=== PATIENT | female | born 1995 | race African-American/Black ===

== ENCOUNTER 2020-12-25 10:23 | Outpatient (REF) | payer OTHER, SELFPAY | END 2020-12-25 10:24 | disposition home or self-care (01) | LOC: HO.LAB 10:23 | PROVIDERS: Visit Provider Internal Medicine | DX: Z20.822 Contact with and (suspected) exposure to COVID-19 (principal) | CPT/HCPCS: 36415; C9803; U0003; U0005 ==

== ENCOUNTER 2020-12-29 13:44 | Outpatient (REF) | payer OTHER, SELFPAY | END 2020-12-29 13:45 | disposition home or self-care (01) | LOC: HO.LAB 13:44 | PROVIDERS: Visit Provider Internal Medicine | DX: Z20.822 Contact with and (suspected) exposure to COVID-19 (principal) | CPT/HCPCS: 36415; C9803; U0003; U0005 ==

== ENCOUNTER 2021-03-09 20:04 | Emergency (ER) | payer OTHER, SELFPAY ==
--- NOTE | ~2021-03-09 | US_ITS ---
EXAMINATION: ULTRASOUND OB PELVIC AND TRANSVAGINAL CLINICAL INFORMATION: Vaginal bleeding COMPARISON: None TECHNIQUE: Sonographic evaluation of the pelvis was performed transabdominally and transvaginally. FINDINGS: The uterus measures 9.1 cm in length and 5.3 x 6.9 cm in AP and transverse dimensions. There is an intrauterine gestational sac with mean sac diameter of 0.5 cm, corresponding to gestational age of 5 weeks 0 days (estimated date of delivery 11/10/2021. There is a questionable yolk sac. No pole is seen at this time. Within the uterus near the gestational sac there is a focal anechoic region measuring up to 0.3 cm in diameter which could represent a small perigestational hemorrhage. The right ovary measures 4.5 x 1.9 x 2.2 cm and appears unremarkable. The left ovary measures 3.4 x 2.0 x 2.1 cm and also appears unremarkable. Trace free fluid is noted in the cul-de-sac. US/US OB pelvic and transvaginal IMPRESSION: 1. Intrauterine gestational sac with mean sac diameter corresponding to gestational age of 5 weeks 0 days (estimated date of delivery 11/10/2021). No pole is seen at this time, which may be due to the early phase of . Follow-up first trimester ultrasound is recommended to assess for development of a pole. 2. Focal anechoic region measuring 0.3 cm in diameter near the gestational sac could represent a small perigestational hemorrhage. Attention on follow-up is recommended. 3. Trace pelvic free fluid.
[2021-03-09 22:29] LABS: Basophils Percent Auto 0.2 % (0-2); Eosinophils Percent Auto 0.3 % (0-4); Glucose Urine UA NEG (NEG); Hematocrit 35.1 % (37-47); Hemoglobin 11.1 g/dl (12.0-16.0); Imm Gran Abs Auto 0.01 X10*3/uL (0.00-0.03); Imm Gran Pct Auto 0.2 % (0.0-0.4); Leukocyte Esterase Urine NEG (NEG); Lymphocytes Percent Auto 17.6 % (20-40); MANUAL DIFF FLAG NO; Mean Corpuscular HGB Conc 31.6 g/dl (31.0-35.0); Mean Corpuscular Hemoglobin 23.9 pg (27.0-33.0); Mean Corpuscular Volume 75.6 fL (80-98); Mean Platelet Volume 9.2 fL (9.4-12.3); Monocytes Absolute Auto 0.6 X10*3/uL (0.1-1.2); Monocytes Percent Auto 10.4 % (2-11); Neutrophils Absolute Auto 4.2 X10*3/uL (2.0-8.3); Neutrophils Percent Auto 71.3 % (45-73); Nitrite Urine NEG (NEG); Platelet Count 307 X10*3/uL (160-400); Red Blood Count 4.64 X10*6/uL (4.20-5.50); Red Cell Distribution Width 14.6 % (11.0-16.0); Specific Gravity - Urine >= 1.030 (1.005-1.025); Urine Blood NEG (NEG); Urine Ketones 5 MG/DL (NEG); Urine Protein NEG (NEG-TRACE); White Blood Count 5.9 X10*3/uL (4.8-10.8)
[2021-03-09 22:30] LABS: Appearance Urine CLEAR; Color Urine YELLOW
[2021-03-09 22:38] VITALS: BP 144/82; PULSE 89; RESP 14; TEMP 36.9; O2SAT 100; BMI 44.6
[2021-03-09 22:54] LABS: Alanine Aminotransferase 16 U/L (0-31); Albumin Level 3.8 g/dL (3.5-5.0); Alkaline Phosphatase 120 U/L (39-117); Anion Gap 11 (12-20); Aspartate Amino Transferase 17 U/L (5-31); Bilirubin Total 0.4 mg/dL (0.0-1.0); Blood Urea Nitrogen 11 mg/dL (9-16); Calcium 9.1 mg/dL (8.4-10.2); Carbon Dioxide 25 mmol/L (22-29); Chloride 107 mmol/L (96-108); Estimated Glomerular Filt Rate > 60; Glucose Random 85 mg/dL (60-115); Sodium 139 mmol/L (135-145); Total Protein 7.2 g/dL (6.5-8.0)
[2021-03-09 23:01] LABS: HCG Quantitative 2244 mIU/mL
[2021-03-10] VITALS: RESP 18
--- NOTE | 2021-03-10 00:14 | ED_ITS ---
HPI - General Chief complaint: Vaginal Bleeding Stated complaint: vaginal bleeding 7weeks Time Seen by Provider: 03/09/21 21:23 Source: patient and family (Mother) Mode of arrival: ambulatory History of Present Illness HPI Narrative: 25-year-old female, , LMP-4/19 with EGA: 7 weeks with onset of sharp pain on urination and noted blood on the tissue paper after urinating but denies any abdominal pelvic cramping. In addition, she denies any fever, chills, shortness of breath, nausea/vomiting, or diarrhea. Related Data Allergies Allergy/AdvReac Type Severity Reaction Status Date / Time latex Allergy Unknown Verified 03/09/21 22:42 nickel Allergy Unknown Verified 03/09/21 22:42 Review of Systems Review of Systems: Pertinent positives and negatives as stated in HPI 10 point review of systems is otherwise negative. [facility] Past Medical History Source: nursing notes reviewed Social History Social History Advance Directives: No Patient : Yes Physical Exam Vital Signs: Vital Signs: Last Vital Signs Temp 98.4 F 03/09/21 22:38 Pulse 89 03/09/21 22:38 Resp 18 03/10/21 00:00 BP 144/82 H 03/09/21 22:38 Pulse Ox 100 03/09/21 22:38 Body Mass Index 44.6 VITAL SIGNS: Reviewed. GENERAL: Well developed, well nourished, in no acute distress. HEAD: Normocephalic/atraumatic EYES: PERRLA, EOMI NOSE: Nares patent bilateral OROPHARYNX: no oral lesions noted, posterior pharynx clear NECK: Supple, no adenopathy LUNGS: Normal breath sounds. No adventitious sounds or accessory muscle use. SpO2<100> CARDIOVASCULAR: Regular rate and rhythm without noted murmurs ABDOMEN: Obese, Soft, non-tender, non-distended with bowel sounds. Course Course Course Narrative: 25-year-old female with history and clinical presentation suggestive of possible SAB or benign 1st trimester spotting. On review of all investigations there are no acute findings on comparison to baseline and on review ultrasound findings patient is dated to be 5 weeks, IUP. All results were discussed with her bedside, she was encouraged to follow-up with her information technology administrator, and to continue her vitamins. MDM - OB/Uterine Contractions Lab Data Result diagrams: 03/09/21 22:18 03/09/21 22:18 Labs: Lab Results 03/09/21 03/09/21 03/09/21 Range/Units 22:18 22:18 22:18 WBC 5.9 (4.8-10.8) X10*3/uL RBC 4.64 (4.20-5.50) X10*6/uL Hgb 11.1 L (12.0-16.0) g/dl Hct 35.1 L (37-47) % MCV 75.6 L (80-98) fL MCH 23.9 L (27.0-33.0) pg MCHC 31.6 (31.0-35.0) g/dl RDW 14.6 (11.0-16.0) % Plt Count 307 (160-400) X10*3/uL MPV 9.2 L (9.4-12.3) fL Immature Gran % (Auto) 0.2 (0.0-0.4) % Neut % (Auto) 71.3 (45-73) % Lymph % (Auto) 17.6 L (20-40) % Steele % (Auto) 10.4 (2-11) % Eos % (Auto) 0.3 (0-4) % Baso % (Auto) 0.2 (0-2) % Lymph # (Auto) 1.0 L (1.2-4.9) X10*3/uL Steele # (Auto) 0.6 (0.1-1.2) X10*3/uL Eos # (Auto) 0.0 (0.0-0.4) X10*3/uL Baso # (Auto) 0.0 (0.0-0.2) X10*3/uL Abs Immat Gran (auto) 0.01 (0.00-0.03) X10*3/uL Absolute Neuts (auto) 4.2 (2.0-8.3) X10*3/uL Absolute Nucleated RBC 0.000 (0.0-0.012) X10*3/uL Nucleated RBC % (auto) 0.0 (0.0-0.2) /100WBC Sodium 139 (135-145) mmol/L Potassium 4.0 (3.3-5.1) mmol/L Chloride 107 (96-108) mmol/L Carbon Dioxide 25 (22-29) mmol/L Anion Gap 11 L (12-20) BUN 11 (9-16) mg/dL Creatinine 0.70 (0.5-1.4) mg/dL Estim Creat Clear Calc 151.0 Estimated GFR > 60 Random Glucose 85 (60-115) mg/dL Calcium 9.1 (8.4-10.2) mg/dL Total Bilirubin 0.4 (0.0-1.0) mg/dL AST 17 (5-31) U/L ALT 16 (0-31) U/L Alkaline Phosphatase 120 H (39-117) U/L Total Protein 7.2 (6.5-8.0) g/dL Albumin 3.8 (3.5-5.0) g/dL Beta HCG, Quant 2244 mIU/mL Urine Color YELLOW Urine Appearance CLEAR Urine pH 6.0 (5.0-8.0) Ur Specific [place] >= 1.030 H (1.005-1.025) Urine Protein NEG (NEG-TRACE) MG/DL Urine Glucose (UA) NEG (NEG) MG/DL Urine Ketones 5 (NEG) MG/DL Urine Blood NEG (NEG) Urine Nitrite NEG (NEG) Ur Leukocyte Esterase NEG (NEG) Discharge Plan Discharge Clinical Impression: First trimester bleeding Patient Disposition: Home, Self-Care Additional Instructions: Continue with vitamins and iron as prescribed or recommended. Follow-up with your information technology administrator by calling the office in the morning for re- evaluation. Return to the ER for any acute worsening symptoms. Referrals: [facility] [Primary Care Provider] - 2 days
== END 2021-03-10 01:40 | disposition home or self-care (01) ==
PROVIDERS: Emergency Provider Student in an Organized Health Care Education/Training Program
DX: O20.9 Hemorrhage in early pregnancy, unspecified (principal); Z3A.01 Less than 8 weeks gestation of pregnancy
CPT/HCPCS: 36415; 76801; 76817; 80053; 81003; 84702; 85025; 99284

== ENCOUNTER 2021-03-14 19:10 | Emergency (ER) | payer OTHER, SELFPAY ==
[2021-03-14 19:31] VITALS: BP 128/82; PULSE 82; RESP 17; TEMP 37; O2SAT 99; BMI 44.6
[2021-03-14 20:00] VITALS: BP 118/61; PULSE 74; RESP 16; O2SAT 100
[2021-03-14 21:42] LABS: Basophils Percent Auto 0.2 % (0-2); Eosinophils Absolute Auto 0.1 X10*3/uL (0.0-0.4); Eosinophils Percent Auto 1.2 % (0-4); Hematocrit 36.3 % (37-47); Hemoglobin 11.5 g/dl (12.0-16.0); Imm Gran Abs Auto 0.02 X10*3/uL (0.00-0.03); Imm Gran Pct Auto 0.4 % (0.0-0.4); Lymphocytes Absolute Auto 1.9 X10*3/uL (1.2-4.9); Lymphocytes Percent Auto 38.5 % (20-40); MANUAL DIFF FLAG SCAN; Mean Corpuscular HGB Conc 31.7 g/dl (31.0-35.0); Mean Corpuscular Hemoglobin 23.7 pg (27.0-33.0); Mean Corpuscular Volume 74.8 fL (80-98); Mean Platelet Volume 8.8 fL (9.4-12.3); Monocytes Absolute Auto 0.5 X10*3/uL (0.1-1.2); Monocytes Percent Auto 9.1 % (2-11); Neutrophils Absolute Auto 2.5 X10*3/uL (2.0-8.3); Neutrophils Percent Auto 50.6 % (45-73); Platelet Count 270 X10*3/uL (160-400); Red Blood Count 4.85 X10*6/uL (4.20-5.50); Red Cell Distribution Width 14.2 % (11.0-16.0); SCAN SMEAR FLAG 1
--- NOTE | 2021-03-14 22:02 | ED_ITS ---
HPI - General Chief complaint: Vaginal Bleeding Stated complaint: PAINFUL URINATION BLEEDING Time Seen by Provider: 03/14/21 21:54 History of Present Illness HPI Narrative: Patient is a 25-year-old female presents today with having last menstrual period back on January 19. Patient was seen emergency department on Tuesday. Had an ultrasound that shows a 5 week gestation intrauterine sac. Patient complaining of increasing cramping to the abdomen today. Noticed some small amount of tissue. Notice bleeding. Patient is from home. Unsure about her blood type. No cough and a congestion or upper respiratory symptoms. No pain on urination. Patient from home. Related Data Allergies Allergy/AdvReac Type Severity Reaction Status Date / Time latex Allergy Unknown Verified 03/09/21 22:42 nickel Allergy Unknown Verified 03/09/21 22:42 Review of Systems Review of Systems: Constitutional: No Weight loss, No Fever, No Chills, No Night Sweats, No Fatigue, No Malaise ENT/Mouth: No Hearing loss, No Ear Pain, No Nasal Congestion, No Sinus Pain, No Hoarseness, No sore throat, No Rhinorrhea, No Swallowing Difficulty Eyes: No Eye Pain, No Swelling, No Redness, No Foreign Body, No Discharge, No Vision Changes Cardiovascular: No Chest Pain, No SOB, No Dyspnea on Exertion, No Orthopnea, No Edema, No Palpitations Respiratory: No Cough, No Sputum, No Wheezing, No Smoke Exposure, No Dyspnea Gastrointestinal: No Nausea, No Vomiting, No Diarrhea, No Constipation, No abdominal Pain, No Hematochezia, No Melena Genitourinary: no irregular bleeding, No Dysuria, No Urinary Frequency, No Hematuria, No Urinary Incontinence, No Urgency, No Flank Pain, No Urinary Flow Changes, No Hesitancy Musculoskeletal: No joint pain, No Myalgias, No Joint Swelling Skin: No Skin Lesions, No rash Neuro: No Weakness, No Numbness, No Paresthesias, No Loss of Consciousness, No Dizziness, No Headache Psych: No Anxiety/Panic, No Depression, No SI/HI/AH/VH, No Social Issues, Heme/Lymph: No Bruising, No Bleeding,No Lymphadenopathy Endocrine: No Polyuria, No Polydipsia, No Temperature Intolerance [facility] Past Medical History Attestation statement: The following information was validated with the patient. Social History Social History Advance Directives: No Advance Directives Information Provided: No Patient : Yes Physical Exam Vital Signs: Vital Signs: Last Vital Signs Temp 98.6 F 03/14/21 19:31 Pulse 74 03/14/21 20:00 Resp 16 03/14/21 20:00 BP 118/61 03/14/21 20:00 Pulse Ox 100 03/14/21 20:00 Body Mass Index 44.6 Appearance: Alert. Oriented X3. No acute distress. Eyes: Pupils equal, round and reactive to light. ENT: Pharynx normal. Neck: Normal inspection. Neck supple. No lymph nodes noted. No crepitus CVS: Normal heart rate and rhythm. Pulses normal. Normal S1 and S2 Respiratory: No respiratory distress. Breath sounds normal. No Wheezing. No r ales Abdomen: Soft and nontender. No rigidity. No distention. good BS x4 Skin: Skin warm and dry. Normal skin color. Normal skin turgor. Extremities: No lower extremity edema. Neurovascular intact to all extremities. No Lacerations. No Rash Neuro: Oriented X 3. No motor deficit. No sensory deficit. Moving all extermities. No slurred speech MDM - OB/Uterine Contractions MDM Narrative Medical decision making narrative: Pelvic exam done with rocio Avalos as polymerization kettle operator. There is no gross external lesions. There is blood in the vaginal vault. The cervical os is closed. There is no adnexal tenderness. Patient's quant is in the 2700 range. This seems low as patient had quant drawn on Tuesday was 2200. Patient's state suggest patient is approximately 9-10 weeks . However patient has ultrasound done on Tuesday showed a approximately 5 weeks with no pole. Likely this is a demise. Will have patient continue taking Tylenol for pain as needed. Follow up on an outpatient basis with OBGYN. Patient's blood type is B positive.. Lab Data Result diagrams: 03/14/21 21:37 03/14/21 21:37 Labs: Lab Results 03/14/21 03/14/21 03/14/21 Range/Units 21:37 21:37 22:06 WBC 5.0 (4.8-10.8) X10*3/uL RBC 4.85 (4.20-5.50) X10*6/uL Hgb 11.5 L (12.0-16.0) g/dl Hct 36.3 L (37-47) % MCV 74.8 L (80-98) fL MCH 23.7 L (27.0-33.0) pg MCHC 31.7 (31.0-35.0) g/dl RDW 14.2 (11.0-16.0) % Plt Count 270 (160-400) X10*3/uL MPV 8.8 L (9.4-12.3) fL Immature Gran % (Auto) 0.4 (0.0-0.4) % Neut % (Auto) 50.6 (45-73) % Lymph % (Auto) 38.5 (20-40) % Major % (Auto) 9.1 (2-11) % Eos % (Auto) 1.2 (0-4) % Baso % (Auto) 0.2 (0-2) % Lymph # (Auto) 1.9 (1.2-4.9) X10*3/uL Major # (Auto) 0.5 (0.1-1.2) X10*3/uL Eos # (Auto) 0.1 (0.0-0.4) X10*3/uL Baso # (Auto) 0.0 (0.0-0.2) X10*3/uL Abs Immat Gran (auto) 0.02 (0.00-0.03) X10*3/uL Absolute Neuts (auto) 2.5 (2.0-8.3) X10*3/uL Absolute Nucleated RBC 0.000 (0.0-0.012) X10*3/uL Nucleated RBC % (auto) 0.0 (0.0-0.2) /100WBC Smear Tech's Comments VERIFIED Sodium 138 (135-145) mmol/L Potassium 3.9 (3.3-5.1) mmol/L Chloride 106 (96-108) mmol/L Carbon Dioxide 24 (22-29) mmol/L Anion Gap 12 (12-20) BUN 8 L (9-16) mg/dL Creatinine 0.71 (0.5-1.4) mg/dL Estim Creat Clear Calc 148.8 Estimated GFR > 60 Random Glucose 86 (60-115) mg/dL Calcium 8.8 (8.4-10.2) mg/dL Total Bilirubin 0.2 (0.0-1.0) mg/dL AST 26 D (5-31) U/L ALT 27 (0-31) U/L Alkaline Phosphatase 135 H (39-117) U/L Total Protein 7.3 (6.5-8.0) g/dL Albumin 3.9 (3.5-5.0) g/dL Beta HCG, Quant 2737 mIU/mL Blood Type B Positive Antibody Screen NEGATIVE Discharge Plan Discharge Clinical Impression: Threatened Patient Disposition: Home, Self-Care Instructions: Threatened Miscarriage (ED) Referrals: [facility] [Primary Care Provider] - 2 days Aneudy Mckinley MD [Physician] - 2 days
[2021-03-14 22:06] LABS: SLIDE REVIEW VERIFIED
[2021-03-14 22:11] LABS: Alanine Aminotransferase 27 U/L (0-31); Albumin Level 3.9 g/dL (3.5-5.0); Alkaline Phosphatase 135 U/L (39-117); Anion Gap 12 (12-20); Aspartate Amino Transferase 26 U/L (5-31); Bilirubin Total 0.2 mg/dL (0.0-1.0); Blood Urea Nitrogen 8 mg/dL (9-16); Calcium 8.8 mg/dL (8.4-10.2); Carbon Dioxide 24 mmol/L (22-29); Chloride 106 mmol/L (96-108); Creatinine Clr Calc Pharmacy 148.8; Estimated Glomerular Filt Rate > 60; Glucose Random 86 mg/dL (60-115); Potassium 3.9 mmol/L (3.3-5.1); Sodium 138 mmol/L (135-145); Total Protein 7.3 g/dL (6.5-8.0)
[2021-03-14 22:19] LABS: HCG Quantitative 2737 mIU/mL
[2021-03-15] VITALS: BP 115/62; PULSE 78; RESP 16; O2SAT 98
== END 2021-03-15 01:55 | disposition home or self-care (01) ==
PROVIDERS: Emergency Provider Emergency Medicine Emergency Medical Services
DX: O20.0 Threatened abortion (principal); Z3A.01 Less than 8 weeks gestation of pregnancy
CPT/HCPCS: 36415; 80053; 84702; 85025; 86850; 86900; 86901; 99284

== ENCOUNTER 2022-01-07 11:56 | Outpatient (REF) | payer OTHER, SELFPAY ==
[2022-01-07 12:31] LABS: COVID-19 Test Negative (Negative); IDNOW Serial# 08D9AD1C
== END 2022-01-07 11:57 | disposition home or self-care (01) ==
LOC: HO.LAB 11:56
PROVIDERS: Visit Provider Internal Medicine
DX: Z20.822 Contact with and (suspected) exposure to COVID-19 (principal)
CPT/HCPCS: 87635; C9803

== ENCOUNTER 2022-05-17 20:36 | Emergency (ER) | payer OTHER, SELFPAY ==
[2022-05-17 20:49] VITALS: BP 151/81; PULSE 95; RESP 18; TEMP 36.2; O2SAT 99; BMI 43.5
[2022-05-17] MEDS: Lidocaine HCl 1 % MPF 2 ML VIAL INFILTRATI ×2 (22:30)
[2022-05-17 22:31] VITALS: BP 144/86; PULSE 75; RESP 16; TEMP 37.3; O2SAT 99
--- NOTE | 2022-05-17 23:34 | ED_ITS ---
HPI - Female Genitourinary General Chief complaint: Urogenital-Female Stated complaint: ? vaginal cyst Time Seen by Provider: 05/17/22 22:25 Source: patient Mode of arrival: ambulatory History of Present Illness HPI Narrative: 27-year-old female with no significant past medical history presenting to the ED complaining of painful vaginal cyst x1 week. Reports area has been growing in size, believes opened today. Denies dysuria, hematuria, inability urinate, pain with BMs, rectal bleeding, vaginal bleeding, vaginal discharge Related Data Previous Rx's Medication Instructions Recorded cephalexin 500 mg capsule 500 mg PO QID 7 days #28 caps 05/17/22 doxycycline hyclate 100 mg tablet 100 mg PO BID 7 days #14 tabs 05/17/22 Allergies Allergy/AdvReac Type Severity Reaction Status Date / Time latex Allergy Unknown Verified 03/09/21 22:42 nickel Allergy Unknown Verified 03/09/21 22:42 Review of Systems Review of Systems: Constitutional: No Fever, No Chills, No Fatigue, No Malaise ENT/Mouth: No Ear Pain, No Nasal Congestion, No Sinus Pain, No Hoarseness, No sore throat, No Rhinorrhea, No Swallowing Difficulty Eyes: No Eye Pain, No Swelling, No Vision Changes Cardiovascular: No Chest Pain, No SOB, No Edema Respiratory: No Cough, No Sputum, No Dyspnea Gastrointestinal: No Nausea, No Vomiting, No Diarrhea, No Constipation, No Abdominal pain Genitourinary: No irregular bleeding, +vaginal cyst, No Dysuria, No Urinary Frequency, No Hematuria, No Flank Pain, No Urinary Flow Changes, No Hesitancy Musculoskeletal: No joint pain, No Myalgias, No Joint Swelling Skin: No Skin Lesions, No rash Neuro: No Weakness, No Headache Yes all other systems are reviewed and are negative Constitutional: Constitutional: Reports as per [facility] Past Medical History Attestation statement: The following information was validated with the patient. Social History Social History Advance Directives: No Advance Directives Information Provided: No Physical Exam Vital Signs: Vital Signs: Last Vital Signs Temp 99.2 F 05/17/22 22:31 Pulse 75 05/17/22 22:31 Resp 16 05/17/22 22:31 BP 144/86 H 05/17/22 22:31 Pulse Ox 99 08/15/22 22:31 O2 Del Method 05/17/22 22:31 BMI result Body Mass Index 43.5 Const: General: cooperative, healthy appearing and no acute distress Orientation/consciousness: patient oriented x3 Limitations: no limitations HEENT: Head: Yes normal to inspection and Yes atraumatic Ears: hearing grossly normal bilaterally General nose exam: Normal external nose present Face and sinus: Yes normal facial exam Eyes: General: appearance normal, both eyes and all related structures EOM: EOMs intact bilaterally Neck: Neck: Yes normal visual inspection and Yes no meningeal signs Resp: Effort & Inspection: normal respiratory effort and no respiratory distress Cardio: Rate: regular rate Heart sounds: S1 normal heart sound present and S2 normal heart sound present GI: Inspection: Yes normal to inspection Palpation (GI): Soft to palpation, nontender, no guarding and not rigid : Other: + pointing abscess noted to left superior labia minora. Slight expressible drainage appreciated. No overlying erythema/cellulitis or induration. No active bleeding. No appreciable lesions. Skin: Rashes: no rashes Wounds: no wounds Neuro: General: patient oriented x3, tone normal and no meningeal signs Gait exam (Neuro): Normal gait present Extrem: General: Yes normal to inspection MDM - Female Genitourinary MDM Narrative Medical decision making narrative: 27-year-old female with no significant past medical history presenting to the ED complaining of painful vaginal cyst x1 week. On exam vital signs stable, NAD, physical exam as above consistent with labial abscess. Will George to allow for further drainage. No evidence of overlying cellulitis Plan: I & D, p.o. antibiotics Differential Diagnosis Differential diagnosis: Likely cyst of Bartholin's gland Medical Records Attestation: I reviewed the patient's medical records. Lab Data Attestation: I reviewed the patient's lab results. Procedures Abscess I/D Site: other (labia minora) Side (if applicable): left Local Anesthetic: lidocaine 1% Amount of anesthesia used (mL): 1 Technique: incised with blade Sent for culture/gram staining?: No Irrigation: No Packing used?: none Discharge Plan Discharge Clinical Impression: Abscess of genital labia Patient Disposition: Home, Self-Care Instructions: Abscess (ED), Abscess Follow-up (ED) Additional Instructions: Your abscess was drained today in the emergency department. Apply warm compresses at home. Take doxycycline and Keflex which are antibiotics as prescribed until completion. Avoid the sun while on doxycycline as makes you prone to sunburn. Take Tylenol Motrin for pain. If symptoms persist/worsen, area grows in size, has bleeding, continue drainage or you fever return to the emergency department Prescriptions: New cephalexin 500 mg capsule 500 mg PO QID 7 Days Qty: 28 0RF doxycycline hyclate 100 mg tablet 100 mg PO BID 7 Days Qty: 14 0RF Referrals: Lauren Good MD [Primary Care Provider] - 3 days Interventions: ED Discharge Assessment Last Done: 05/17/22 23:49
[2022-05-17] MEDS: cephALEXin 500 MG CAPSULE PO (23:49)
== END 2022-05-17 23:51 | disposition home or self-care (01) ==
PROVIDERS: Emergency Provider Emergency Medicine; PCP Internal Medicine
DX: N76.4 Abscess of vulva (principal)
CPT/HCPCS: 56405; 99283; 99284

== ENCOUNTER 2024-03-29 01:30 | Emergency (ER) | payer OTHER, SELFPAY ==
--- NOTE | 2024-03-29 07:01 | ED.EAR ---
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 no trauma or swimming activities MD Complaint: ear pain, ear discharge and decreased hearing Location: left ear Duration: constant Severity: severe Relieving factors: nothing Exacerbating factors: palpation Discharge from ear: yes - clear Associated symptoms ear: decreased hearing, external ear tenderness and ear swelling Treatment prior to arrival: none Related Data Previous Rx's ?Medication ?Instructions ?Recorded cephalexin 500 mg capsule 500 mg PO QID 7 days #28 caps 05/17/22 doxycycline hyclate 100 mg tablet 100 mg PO BID 7 days #14 tabs 05/17/22 levofloxacin 750 mg tablet 750 mg PO DAILY #6 tabs 03/29/24 ofloxacin 0.3 % ear drops 10 drp otic (ear) left DAILY 7 03/29/24 days #5 mL Allergies Allergy/AdvReac Type Severity Reaction Status Date / Time latex Allergy Unknown Verified 03/09/21 22:42 nickel Allergy Unknown Verified 03/09/21 22:42 Review of Systems Review of Systems: Constitutional : No Fever, No Chills, No Fatigue ENT/Mouth : No sore throat, No Rhinorrhea, pos ear pain, pos discharge Eyes: No Eye Pain, No Swelling, No Redness Cardiovascular : No Chest Pain, No SOB, No Dyspnea on Exertion Respiratory : No Cough, No Sputum Gastrointestinal : No Nausea, No Vomiting, No Diarrhea, No abdominal Pain Musculoskeletal : No joint pain, No Myalgias, No Joint Swelling Skin : No Skin Lesions, No rash Neuro : No Weakness, No Numbness, No Dizziness, positive Headache All other systems reviewed and are negative [facility] Past Medical History Attestation statement: The following information was validated with the patient. Medical History (Updated 03/29/24 @ 07:12 by Holly Muro DO) Pre-diabetes Social History Social History (Updated 03/29/24 @ 07:12 by Holly Muro DO) Patient Tobacco Use Status: Never used Tobacco Physical Exam Vital Signs: Appearance: Alert. Oriented X3. No acute distress. Eyes: Pupils equal, round and reactive to light. ENT: Pharynx normal. L ear ext yellow discharge swelling at opening of canal and erythema ttp ext ear no mastoid ttp TM red and bulging no rupture Neck: Normal inspection. Neck supple. CVS: Normal heart rate and rhythm. Pulses normal. Respiratory: No respiratory distress. Breath sounds normal. Abdomen: Soft and nontender. Skin: Skin warm and dry. Normal skin color. Normal skin turgor. Extremities: No lower extremity edema. No calf ttp Neuro: Oriented X 3. No motor deficit. No sensory deficit. Medical Decision Making Medical Decision Making MDM Narrative: 29 yo female with PMH of L ear infection and drainage x 1 day no mastoid ttp ear consistent with AOM and external otitis swelling localized to opening of the ear at this time oral meds and drops ordered with precautions to return Differential Diagnosis Differential Diagnoses: The differential diagnosis associated with the presentation includes AOM, external otitis Prescription Management I considered prescription management with: Antibiotic and Other Discharge Plan Discharge Clinical Impression: Otitis media Qualifiers: Otitis media type: suppurative Chronicity: acute Laterality: left Recurrence: non-recurrent Spontaneous tympanic membrane rupture: without spontaneous rupture Qualified Code(s): H66.002 - Acute suppurative otitis media without spontaneous rupture of ear drum, left ear Otitis externa Qualifiers: Otitis externa type: diffuse Chronicity: acute Laterality: left Qualified Code(s): H60.312 - Diffuse otitis externa, left ear Patient Disposition: Home, Self-Care Instructions: How to Use Ear Drops (ED), Ear Infection (ED) Additional Instructions: return for worsening symptoms, increased swelling, no water in ear for the next week limit shower x 72 hours return for increased pain, swelling or any other concerns. Prescriptions: New levofloxacin 750 mg tablet 750 mg PO DAILY Qty: 6 0RF ofloxacin 0.3 % drops 10 drp otic (ear) left DAILY 7 Days Qty: 5 0RF No Action cephalexin 500 mg capsule 500 mg PO QID 7 Days Qty: 28 0RF doxycycline hyclate 100 mg tablet 100 mg PO BID 7 Days Qty: 14 0RF Stand Alone Forms: Work/School Release Print Language: Barb[place]
[2024-03-29] MEDS: levoFLOXacin 750 MG TABLET PO (07:25)
== END 2024-03-29 07:26 | disposition home or self-care (01) ==
PROVIDERS: Emergency Provider Emergency Medicine
DX: H66.002 Acute suppurative otitis media without spontaneous rupture of ear drum, left ear (principal); H60.312 Diffuse otitis externa, left ear; H92.02 Otalgia, left ear
CPT/HCPCS: 99283

== ENCOUNTER 2024-04-05 16:01 | Emergency (ER) | payer OTHER, SELFPAY ==
[2024-04-05 16:02] VITALS: BP 146/79; PULSE 75; RESP 16; TEMP 36.3; O2SAT 97; BMI 46.6
--- NOTE | 2024-04-05 16:11 | ED_ITS ---
HPI - General Adult General Chief complaint: Ear Problems Stated complaint: can't hear out of L ear Time Seen by Provider: 04/05/24 16:07 Source: patient Mode of arrival: ambulatory Limitations: no limitations History of Present Illness ED Provider: Rishabh Quiles PA-C HPI narrative: 29 yold female recently being treated for sensation of left ear being blocked difficulty hearing for 1 week. Patient was recently seen here on the 29 of March and was given oral antibiotics treat as otitis externa. Patient denies any bleeding from ear, swelling in front of behind the ear, redness, headache, fever, or chills. Related Data Previous Rx's ?Medication ?Instructions ?Recorded cephalexin 500 mg capsule 500 mg PO QID 7 days #28 caps 05/17/22 doxycycline hyclate 100 mg tablet 100 mg PO BID 7 days #14 tabs 05/17/22 levofloxacin 750 mg tablet 750 mg PO DAILY #6 tabs 03/29/24 ofloxacin 0.3 % ear drops 10 drp otic (ear) left DAILY 7 03/29/24 days #5 mL amoxicillin 875 mg-potassium 1 tab PO Q12H 10 days #20 tabs 04/05/24 clavulanate 125 mg tablet Allergies Allergy/AdvReac Type Severity Reaction Status Date / Time latex Allergy Unknown Verified 04/05/24 16:07 nickel Allergy Unknown Verified 04/05/24 16:02 Review of Systems Review of Systems: left ear discomfort Yes all other systems are reviewed and are negative [facility] Past Medical History Medical History (Updated 04/05/24 @ 16:27 by CLAIRE Love) Pre-diabetes Social History Social History (Updated 03/29/24 @ 07:12 by Holly Muro DO) Patient Tobacco Use Status: Never used Tobacco Advance Directives: No Advance Directives Information Provided: No Physical Exam ED Vital Signs: Vital Signs - 24 hr 04/05/24 16:02 04/05/24 16:31 Temperature 97.3 F 97.3 F Pulse Rate 75 75 Respiratory Rate 16 16 Blood Pressure 146/79 H 146/79 H Pulse Oximetry 97 97 Oxygen Delivery Method Room Air Room Air BMI result Body Mass Index 46.6 Const General: cooperative, healthy appearing, comfortable, no acute distress, well developed, alert, awake and Physically active Orientation/consciousness: patient oriented x3 HENMT Head: Yes normal to inspection, Yes No palpable skull fracture present, Yes normocephalic and Yes atraumatic Ears: hearing grossly normal bilaterally, external ears normal, TM normal on the right, EAC's normal, mastoids normal, no periauricular adenopathy and TM abnormal (possible left TM perforation. small white lesion/mass seen) Throat: Yes posterior oropharynx normal, Yes tonsils normal and Yes uvula midline Eyes General: appearance normal, both eyes and all related structures Neck Neck: Yes normal visual inspection, Yes full ROM, Yes no lymphadenopathy, Yes no meningeal signs, Yes trachea midline, Yes supple, No anterior neck swelling and No tender Chest Chest palpation & inspection: normal inspection of the chest and normal palpation of entire chest wall Resp Effort & Inspection: normal respiratory effort and able to speak in complete sentences Auscultation: clear to auscultation bilaterally Cardio Jugular venous distension: no JVD Heart sounds: S1 normal heart sound present and S2 normal heart sound present GI Inspection: Yes normal to inspection Palpation (GI): Soft to palpation, not firm, nontender, no guarding and not rigid General: No CVA tenderness and Yes no CVA tenderness Back/Spine/Pelvis Back: no CVA tenderness, No CVA tenderness and No back tenderness Skin General skin exam: no rashes or lesions noted, elasticity normal and turgor normal Neuro General: patient oriented x3, gait normal, tone normal, moves all extremities, Normal light touch and pain sensation, no meningeal signs, no focal motor deficits, CN's II-XI intact bilaterally and normal sensation to monofilament Extrem General: Yes normal to inspection, Yes full ROM and Yes capillary refill normal Psych Appearance: grossly normal, well kempt and not disheveled Medical Decision Making Medical Decision Making MDM Narrative: 29 yold female presents to ED for left ear pain. Patient recently treated for otitis externa. Patient states completed treatment of oral antibiotic of Levaquin and ear drop antibiotics. Patient denies any fever or chills. On exam possible tympanic membrane perforation versus white lesion near tympanic membrane. Not movable and not a foreign object. Patient denies placing foreign objects in the ear. Patient will be given oral antibiotics. Patient informed to not let any water get into ear incomplete cotton gauze and ear. Patient informed to follow-up with ENT to re-evaluate ear to see for tympanic membrane perforation versus a lesion that needs to be biopsied. Differential Diagnosis Differential Diagnoses: The differential diagnosis associated with the presentation includes (Externa otitis media) Admission/Observation Consideration of admission/observation: Escalation of care including ad mission/observation considered Independent Historian Clinical information obtained from an independent historian. History obtained from or confirmed by: Other (patient) External Record Review External record reviewed: Other (prior visits) Prescription Management I considered prescription management with: Antibiotic Discharge Plan Discharge Clinical Impression: Ear infection, Tympanic membrane perforation, nontraumatic Patient Disposition: Home, Self-Care Instructions: Ruptured Eardrum (ED), Ear Infection (ED) Additional Instructions: Physical exam shows possible tympanic membrane perforation versus a lesion near tympanic membrane. Keep cotton gauze in your ear do not let water get inside the ear. You need to follow-up with ENT specialist to re-evaluate ear to confirm for possible tympanic membrane perforation versus possible biopsy of lesions. Return to the ED immediately for any worsening ear pain, redness, swelling of ear, pus discharge, fever, chills, headache, dizziness, or any other concerning symptoms. Prescriptions: New amoxicillin-pot clavulanate 875-125 mg tablet 1 tab PO Q12H 10 Days Qty: 20 0RF No Action cephalexin 500 mg capsule 500 mg PO QID 7 Days Qty: 28 0RF doxycycline hyclate 100 mg tablet 100 mg PO BID 7 Days Qty: 14 0RF levofloxacin 750 mg tablet 750 mg PO DAILY Qty: 6 0RF ofloxacin 0.3 % drops 10 drp otic (ear) left DAILY 7 Days Qty: 5 0RF Referrals: Chandan Hawthorne [Physician] - (Left ear possible tympanic membrane perforation vs white lesion near TM) Interventions: ED Discharge Assessment Last Done: 04/05/24 16:31 Discharge Date/Time: 04/05/24 16:34 Print Language: Indonesian
[2024-04-05 16:31] VITALS: BP 146/79; PULSE 75; RESP 16; TEMP 36.3; O2SAT 97
== END 2024-04-05 16:34 | disposition home or self-care (01) ==
PROVIDERS: Emergency Provider Emergency Medicine
DX: H66.92 Otitis media, unspecified, left ear (principal); H91.8X2 Other specified hearing loss, left ear; H72.92 Unspecified perforation of tympanic membrane, left ear
CPT/HCPCS: 99282; 99283

== ENCOUNTER 2024-05-12 08:30 | Emergency (ER) | payer OTHER, SELFPAY ==
[2024-05-12 08:34] VITALS: BP 133/100; PULSE 69; RESP 16; TEMP 36.2; O2SAT 98; BMI 45.7
--- NOTE | 2024-05-12 08:45 | ED_ITS ---
HPI - General Adult General Chief complaint: Skin/Abscess/Foreign Body Stated complaint: lt arm rash Time Seen by Provider: 05/12/24 08:45 Source: patient Mode of arrival: ambulatory Limitations: no limitations History of Present Illness ED Provider: Clarice Elaine PA-C HPI narrative: 29 year old female with a medical history of eczema, presenting to the ED with concerns of a rash on the left wrist and forearm that started on . She reports using calamine lotion and antibacterial wash on the rash. She states the rash has not worsened or spread however wanted to make sure it's nothing concerning hence her visit to the ED. Patient states she has allergies to latex and nickel and has not been in contact with those recently. There has been no changes to detergent, body soaps and diet. She denies fevers, itching, burning sensation, pain, redness, numbness/tingling, chest pain, abdominal pain, headaches, and shortness of breath. Onset (ago): day(s) (2) Location: left and upper extremity Severity: mild Relieving factors: none Exacerbating factors: none Associated symptoms: rash Related Data Previous Rx's ?Medication ?Instructions ?Recorded cephalexin 500 mg capsule 500 mg PO QID 7 days #28 caps 05/17/22 doxycycline hyclate 100 mg tablet 100 mg PO BID 7 days #14 tabs 05/17/22 levofloxacin 750 mg tablet 750 mg PO DAILY #6 tabs 03/29/24 ofloxacin 0.3 % ear drops 10 drp otic (ear) left DAILY 7 03/29/24 days #5 mL amoxicillin 875 mg-potassium 1 tab PO Q12H 10 days #20 tabs 04/05/24 clavulanate 125 mg tablet Allergies Allergy/AdvReac Type Severity Reaction Status Date / Time latex Allergy Unknown Verified 05/12/24 08:36 nickel Allergy Unknown Verified 05/12/24 08:36 Review of Systems Constitutional: Constitutional: Reports no additional constitutional complaints, Denies chills, Denies fever(s) and Denies night sweats Eyes: Eyes: Reports no additional eye complaints, Denies blurry vision, Denies change in vision, Denies diplopia, Denies eye discharge, Denies loss of vision and Denies eye pain ENT: Denies dizziness Cardiovascular: Cardiovascular: Reports no additional cardiovascular complaints, Denies chest pain, Denies lightheadedness, Denies Loss of Consciousness and Denies dyspnea Respiratory: Respiratory: Reports no additional respiratory complaints and Denies dyspnea Gastrointestinal: Gastrointestinal: Reports no additional gastrointestinal com plaints, Denies abdominal pain, Denies melena, Denies hematochezia, Denies change in bowel habits and Denies change in stool character Genitourinary: Genitourinary: Denies hematuria, Denies urinary frequency, Denies dysuria, Denies urinary incontinence, Denies urinary hesitancy and Denies urinary urgency Musculoskeletal: Musculoskeletal: Reports no additional musculoskeletal complaints, Denies numbness and Denies tingling Integumentary/Breasts: Comments: left wrist rash Neurologic: Denies dizziness, Denies loss of vision, Denies numbness and Denies tingling Psychiatric: Psychiatric: Reports no additional psychiatric complaints Endocrine: Endocrine: Reports no additional endocrine complaints Hematologic/Lymphatic: Hematologic/Lymphatic: Reports no additional hematologic/lymphatic complaints Allergic/Immunologic: Allergic/Immunologic: Reports no additional allergic/immunologic complaints [facility] Past Medical History Attestation statement: The following information was validated with the patient. Source: old records reviewed and nursing notes reviewed Medical History Pre-diabetes Social History Social History Patient Tobacco Use Status: Never used Tobacco Advance Directives: No Advance Directives Information Provided: No Physical Exam ED Vital Signs: Vital Signs - 24 hr 05/12/24 08:34 05/12/24 09:46 Temperature 97.1 F 97.9 F Pulse Rate 69 72 Respiratory Rate 16 16 Blood Pressure 133/100 H 128/94 H Pulse Oximetry 98 98 Oxygen Delivery Method Room Air Room Air BMI result Body Mass Index 45.7 Const General: cooperative, no acute distress, alert and awake Nutritional Appearance: well nourished Orientation/consciousness: patient oriented x3 Limitations: no limitations HENMT Head: Yes normal to inspection and Yes atraumatic Ears: hearing grossly normal bilaterally and external ears normal General nose exam: Normal external nose present, no nasal discharge noted and no epistaxis Face and sinus: Yes normal facial exam, No abrasion and No laceration Mouth: Normal oral and palatal mucosa present, no drooling and no muffled voice Eyes General: appearance normal, both eyes and all related structures Periorbital: periorbital findings normal Eyelids: Yes eyelids normal Conjunctivae: conjunctivae normal Pupils: Equal, round and reactive pupils present EOM: EOMs intact bilaterally Neck Neck: Yes normal visual inspection, Yes full ROM and Yes no lymphadenopathy Chest Chest palpation & inspection: normal inspection of the chest Resp Effort & Inspection: normal respiratory effort and able to speak in complete sentences GI Inspection: Yes normal to inspection Neuro General: patient oriented x3 and moves all extremities Cranial nerves: Yes Equal, round and reactive pupils present Cognition (Neuro): normal cognition Extrem Other: eczema type rash present to the dorsal left wrist General: Yes full ROM and Yes capillary refill normal Psych Appearance: grossly normal Mental Status: mental status grossly normal Affect: normal affect Attitude: cooperative Thought process: Normal thought process present Thought content: Normal thought content present Insight: Good insight present (Psych) Medical Decision Making Medical Decision Making MDM Narrative: Patient is a 29 year old assigned female at with a history of eczema presenting to the emergency department today with a left wrist rash. Patient's physical exam showed a left wrist rash consistent with eczema. I explained my physical exam findings to the patient. I answered all questions asked by the patient. I stressed the importance of the patient taking her medication as directed (either prescribed or as the over the counter packaging recommends). I stressed the importance of the patient following up with her primary care provider. I stressed the importance of the patient returning to the emergency department immediately if her symptoms were to worsen or if she were to develop any dizziness, shortness of breath, difficulty breathing, chest pain, blurry vision, loss of vision, nausea, vomiting, abdominal pain, fever, chills, back pain, or any other complaints. Patient verbalized agreement and understanding with this treatment plan and discharge. Differential Diagnosis Differential Diagnoses: The differential diagnosis associated with the presentation includes L wrist rash Rash Eczema Admission/Observation Consideration of admission/observation: Escalation of care including admission/observation considered Patient would have been admitted to the hospital had her work up had any findings where hospital admission was appropriate and her clinical presentation warranted hospital admission. Discharge Plan Discharge Clinical Impression: Eczema Patient Disposition: Home, Self-Care Instructions: Dermatitis (ED) Additional Instructions: Follow up with your primary care provider. Return to the emergency department immediately if your symptoms worsen or if you develop any dizziness, shortness of breath, difficulty breathing, chest pain, blurry vision, loss of vision, nausea, vomiting, abdominal pain, fever, chills, back pain, or any other complaints. Prescriptions: No Action cephalexin 500 mg capsule 500 mg PO QID 7 Days Qty: 28 0RF doxycycline hyclate 100 mg tablet 100 mg PO BID 7 Days Qty: 14 0RF levofloxacin 750 mg tablet 750 mg PO DAILY Qty: 6 0RF ofloxacin 0.3 % drops 10 drp otic (ear) left DAILY 7 Days Qty: 5 0RF amoxicillin-pot clavulanate 875-125 mg tablet 1 tab PO Q12H 10 Days Qty: 20 0RF [place] [facility] [place]] (Call to establish and follow up with a primary care provider. If you already have a primary care provider, please follow up with them.) [facility] [place] [facility] [place] [facility] [place] [facility] [place] Stand Alone Forms: Work/School Release Interventions: ED Discharge Assessment Last Done: 05/12/24 09:46 Discharge Date/Time: 05/12/24 09:46 Print Language: Panamanian
[2024-05-12 09:46] VITALS: BP 128/94; PULSE 72; RESP 16; TEMP 36.6; O2SAT 98
== END 2024-05-12 09:46 | disposition home or self-care (01) ==
PROVIDERS: Emergency Provider Emergency Medicine
DX: L30.9 Dermatitis, unspecified (principal)
CPT/HCPCS: 99282

== ENCOUNTER 2024-10-25 18:22 | Emergency (ER) | payer BC, SELFPAY ==
--- NOTE | ~2024-10-25 | XR_ITS ---
CLINICAL HISTORY: pain 2 view chest x-ray. Comparison: None Findings: The lungs are adequately expanded. No focal consolidation. No effusion or pneumothorax. Cardiac and mediastinal contours are within normal limits. No acute osseous abnormality Impression: No acute process. This document has been electronically signed by: Jacobo Reid MD on 10/25/2024 20:16:46
[2024-10-25 18:29] VITALS: BP 140/71; PULSE 74; RESP 16; TEMP 36.4; O2SAT 98; BMI 43.9
--- NOTE | 2024-10-25 18:31 | ECG_ITS ---
Test Reason : PAIN Blood Pressure : */* mmHG Vent. Rate : 64 BPM Atrial Rate : 64 BPM P-R Int : 152 ms QRS Dur : 90 ms QT Int : 388 ms P-R-T Axes : 16 69 18 degrees QTcB Int : 400 ms Normal sinus rhythm Normal ECG No previous ECGs available Referred By: Girish Horvath Electronically Signed By: HEBERT MIRANDA MD
--- NOTE | 2024-10-25 18:32 | ED_ITS ---
HPI - General Adult General Chief complaint: Upper Respiratory Symptoms Stated complaint: muscle aches/coughing plemn/chest pain Time Seen by Provider: 10/25/24 20:56 Source: patient, RN notes reviewed and old records reviewed Mode of arrival: ambulatory Limitations: no limitations History of Present Illness ED Provider: Yuliet LAWRENCE narrative: 21-year-old female presents for evaluation of fevers, body aches, vomiting and diarrhea. She was complains of chest pain. Her symptoms started Tuesday morning, but 60 hours ago. She reports that her symptoms seemed to worsen this morning. Denies any cardiac history. She endorses subjective fevers but never took her temperature. Denies any known sick contacts Related Data Previous Rx's ?Medication ?Instructions ?Recorded cephalexin 500 mg capsule 500 mg PO QID 7 days #28 caps 05/17/22 doxycycline hyclate 100 mg tablet 100 mg PO BID 7 days #14 tabs 05/17/22 levofloxacin 750 mg tablet 750 mg PO DAILY #6 tabs 03/29/24 ofloxacin 0.3 % ear drops 10 drp otic (ear) left DAILY 7 03/29/24 days #5 mL amoxicillin 875 mg-potassium 1 tab PO Q12H 10 days #20 tabs 04/05/24 clavulanate 125 mg tablet Allergies Allergy/AdvReac Type Severity Reaction Status Date / Time latex Allergy Unknown Verified 10/25/24 18:33 nickel Allergy Unknown Verified 10/25/24 18:33 Review of Systems 2 Constitutional: Constitutional: Reports body ache(s), Reports chills, Reports fever(s), Reports headache(s), Reports malaise and Reports weakness ENT: Reports headache(s) and Denies sore throat Cardiovascular: Cardiovascular: Reports chest pain and Denies dyspnea Respiratory: Respiratory: Reports cough and Denies dyspnea Gastrointestinal: Gastrointestinal: Denies abdominal pain, Denies hematochezia, Reports diarrhea, Denies nausea and Denies vomiting Musculoskeletal: Musculoskeletal: Denies back pain and Reports myalgias Neurologic: Reports headache(s) and Reports weakness PMFSH Past Medical History Medical History Pre-diabetes Social History Social History Patient Tobacco Use Status: Never used Tobacco Do you have a plan to hurt others: No Plan Physical Exam ED Vital Signs: Vital Signs - 24 hr 10/25/24 18:29 Temperature 97.6 F Pulse Rate 74 Respiratory Rate 16 Blood Pressure 140/71 H Pulse Oximetry 98 Oxygen Delivery Method Room Air BMI result Body Mass Index 43.9 Const General: healthy appearing, comfortable, no acute distress, alert and awake Nutritional Appearance: well nourished Orientation/consciousness: patient oriented x3 HENMT Head: Yes normocephalic and Yes atraumatic Eyes Eyelids: Yes eyelids normal Conjunctivae: conjunctivae normal Sclerae: sclerae normal Corneas: corneas normal Pupils: Equal, round and reactive pupils present EOM: EOMs intact bilaterally Neck Neck: Yes full ROM Resp Effort & Inspection: normal respiratory effort, able to speak in complete sentences, no audible wheezes and not labored Auscultation: clear to auscultation bilaterally Cardio Rate: regular rate Rhythm: regular rhythm Skin General skin exam: elasticity normal Neuro General: patient oriented x3 Cranial nerves: Yes Equal, round and reactive pupils present and Yes Bilaterally intact EOM present Cognition (Neuro): normal cognition Extrem Other: Moving all extremities well without any obvious deformities Course Course Course Narrative: RME, this is a rapid medical exam performed by Ramon Horvath please refer to primary provider for complete H&P- 29 year old female presents for evaluation of multiple complaints including cough, body aches, stress incontinence, hot flashes, adn chest pain. Plan for labs, EKG, viral swabs, chest x-ray Medical Decision Making Medical Decision Making [facility] Narrative: 21-year-old female presents for evaluation of flu-like symptoms. She also complains of chest pain so had a cardiac workup that included labs, EKG, chest x-ray. Her labs did not show any concerning abnormalities, EKG was normal sinus rhythm without ischemia or ectopy. Chest x-ray was clear. She did test positive for influenza A. Discussed risks and benefits of Tamiflu treatment. The patient is outside the window and is comfortable with symptomatic care. Discussed return precautions Differential Diagnosis Differential Diagnoses: The differential diagnosis associated with the presentation includes Influenza A Costochondritis Bronchitis Pneumonia Influenza Lab Data [facility] Lab Attestation statement: I reviewed the patient's lab results. Mild leukopenia which may be related to viral etiology, the patient has a chronic microcytic anemia unchanged from baseline. Normally significant lab abnormalities. Troponin less than 2.7, that she is not 10/25/24 18:53 10/25/24 18:53 Labs: Lab Results 10/25/24 Range/Units 18:53 WBC 4.5 L (4.8-10.8) X10*3/uL RBC 4.66 (4.20-5.50) X10*6/uL Hgb 11.7 L (12.0-16.0) g/dl Hct 36.2 L (37.0-47.0) % MCV 77.7 L (80.0-98.0) fL MCH 25.1 L (27.0-33.0) pg MCHC 32.3 (31.0-35.0) g/dl RDW 13.8 (11.0-16.0) % Plt Count 251 (160-400) X10*3/uL MPV 9.2 L (9.4-12.3) fL Immature Gran % (Auto) 0.2 (0.0-0.4) % Neut % (Auto) 60.3 (45-73) % Lymph % (Auto) 25.4 (20-40) % George % (Auto) 13.7 H (2-11) % Eos % (Auto) 0.2 (0-4) % Baso % (Auto) 0.2 (0-2) % Lymph # (Auto) 1.1 L (1.2-4.9) X10*3/uL George # (Auto) 0.6 (0.1-1.2) X10*3/uL Eos # (Auto) 0.0 (0.0-0.4) X10*3/uL Baso # (Auto) 0.0 (0.0-0.2) X10*3/uL Abs Immat Gran (auto) 0.01 (0.00-0.03) X10*3/uL Absolute Neuts (auto) 2.7 (2.0-8.3) x10*3/uL Absolute Nucleated RBC 0.000 (0.0-0.012) X10*3/uL Nucleated RBC % (auto) 0.0 (0.0-0.2) /100WBC PT 14.6 H (10.9-12.4) SEC INR 1.3 H (0.9-1.1) Sodium 139 (135-145) mmol/L Potassium 3.6 (3.3-5.1) mmol/L Chloride 109 H (96-108) mmol/L Carbon Dioxide 26 (22-29) mmol/L Anion Gap 8 L (12-20) BUN 10 (9-16) mg/dL Creatinine 0.70 (0.5-1.4) mg/dL Estim Creat Clear Calc 144.3 Estimated GFR > 60 Random Glucose 90 (60-115) mg/dL Calcium 8.9 (8.4-10.2) mg/dL Total Bilirubin 0.4 (0.0-1.0) mg/dL AST 31 (5-31) U/L ALT 28 (0-31) U/L Alkaline Phosphatase 91 (39-117) U/L Troponin I High Sens < 2.7 (<3.5-17.0) ng/L Total Protein 8.1 H (6.5-8.0) g/dL Albumin 3.9 (3.5-5.0) g/dL Lipase 18 (8-78) U/L Beta HCG, Quant < 2 mIU/mL Influenza Type A (PCR) POSITIVE A (Negative) Influenza Type B (PCR) NEGATIVE (Negative) RSV RNA Qual (PCR) NEGATIVE (Negative) SARS-CoV-2 RNA (RT-PCR) NEGATIVE (Negative) Independent Interpretation I performed an independent interpretation of an: EKG (Sinus rhythm with a rate of 64 beats per minute. No ST segment changes) and Plain X-Ray (Agree with Radiology interpretation) Radiology Impression Discussion of test interpretation with radiology: I have reviewed the radiologist's reading. Radiologist Impression: Findings: The lungs are adequately expanded. No focal consolidation. No effusion or pneumothorax. Cardiac and mediastinal contours are within normal limits. No acute osseous abnormality Impression: No acute process. This document has been electronically signed by: Jacboo Reid MD on 10/25/2024 20:16:46 Discharge Plan Discharge Clinical Impression: Influenza Patient Disposition: Home, Self-Care Instructions: Influenza (ED) Additional Instructions: You tested positive for influenza A. The remainder of your workup was unremarkable this includes your labs, chest x- ray, EKG. Use ibuprofen/Tylenol for fevers, body aches. Hydrate well. Follow-up with your primary doctor, return for new or worsening symptoms Prescriptions: No Action cephalexin 500 mg capsule 500 mg PO QID 7 Days Qty: 28 0RF doxycycline hyclate 100 mg tablet 100 mg PO BID 7 Days Qty: 14 0RF levofloxacin 750 mg tablet 750 mg PO DAILY Qty: 6 0RF ofloxacin 0.3 % drops 10 drp otic (ear) left DAILY 7 Days Qty: 5 0RF amoxicillin-pot clavulanate 875-125 mg tablet 1 tab PO Q12H 10 Days Qty: 20 0RF Stand Alone Forms: Work/School Release Print Language: Japanese
[2024-10-25 18:58] LABS: MANUAL DIFF FLAG NO
[2024-10-25 19:00] LABS: Basophils Percent Auto 0.2 % (0-2); Eosinophils Percent Auto 0.2 % (0-4); Hematocrit 36.2 % (37.0-47.0); Hemoglobin 11.7 g/dl (12.0-16.0); Imm Gran Abs Auto 0.01 X10*3/uL (0.00-0.03); Imm Gran Pct Auto 0.2 % (0.0-0.4); Lymphocytes Absolute Auto 1.1 X10*3/uL (1.2-4.9); Lymphocytes Percent Auto 25.4 % (20-40); Mean Corpuscular HGB Conc 32.3 g/dl (31.0-35.0); Mean Corpuscular Hemoglobin 25.1 pg (27.0-33.0); Mean Corpuscular Volume 77.7 fL (80.0-98.0); Mean Platelet Volume 9.2 fL (9.4-12.3); Monocytes Absolute Auto 0.6 X10*3/uL (0.1-1.2); Monocytes Percent Auto 13.7 % (2-11); Neutrophils Absolute Auto 2.7 x10*3/uL (2.0-8.3); Neutrophils Percent Auto 60.3 % (45-73); Platelet Count 251 X10*3/uL (160-400); Red Blood Count 4.66 X10*6/uL (4.20-5.50); Red Cell Distribution Width 13.8 % (11.0-16.0); White Blood Count 4.5 X10*3/uL (4.8-10.8)
[2024-10-25 19:04] LABS: INTERNATIONAL NORM RATIO 1.3 (0.9-1.1); Prothrombin Time 14.6 SEC (10.9-12.4)
[2024-10-25 19:14] LABS: Alanine Aminotransferase 28 U/L (0-31); Albumin Level 3.9 g/dL (3.5-5.0); Alkaline Phosphatase 91 U/L (39-117); Anion Gap 8 (12-20); Aspartate Amino Transferase 31 U/L (5-31); Bilirubin Total 0.4 mg/dL (0.0-1.0); Blood Urea Nitrogen 10 mg/dL (9-16); Calcium 8.9 mg/dL (8.4-10.2); Carbon Dioxide 26 mmol/L (22-29); Chloride 109 mmol/L (96-108); Creatinine Clr Calc Pharmacy 144.3; Estimated Glomerular Filt Rate > 60; Glucose Random 90 mg/dL (60-115); Lipase 18 U/L (8-78); Potassium 3.6 mmol/L (3.3-5.1); Sodium 139 mmol/L (135-145); Total Protein 8.1 g/dL (6.5-8.0)
[2024-10-25 19:21] LABS: HCG Quantitative < 2 mIU/mL
[2024-10-25 19:28] LABS: Troponin-I High Sensitivity < 2.7 ng/L (<3.5-17.0)
[2024-10-25 19:57] LABS: Influenza A PCR POSITIVE (Negative); Influenza B PCR NEGATIVE (Negative); Resp Syncy Virus RNA Qual PCR NEGATIVE (Negative); SARS COV2 PCR INHOUSE NEGATIVE (Negative)
[2024-10-25 20:59] VITALS: BP 173/87; PULSE 75; RESP 20; TEMP 36.8; O2SAT 99
[2024-10-25 21:02] VITALS: BP 173/87; PULSE 75; RESP 20; TEMP 36.8; O2SAT 99
--- OUTSIDE RECORDS SUMMARY | 2024-10-25 21:07 | XMS_ITS | Encounter Summary ---
Author Organization [employer] Address [address] [place] [address] [address] [address] Care Team Providers Care Aerospace Products Sales Engineer Name Role Phone Dori Abarca Primary Care Provider Encounter Details Date Type Department Care Team (Latest Contact Info) Description 09/20/2019 Abstract [facility] CONVERSIONS Dental, Provider, DDS Social History Tobacco Use Types Packs/Day Years Used Date Smoking Tobacco: Never Assessed Comments Unknown Sex and Gender Information Value Date Recorded Sex Assigned at Female 08/02/2022 10:16 AM EDT Legal Sex Female 10:16 AM EDT Gender Identity Female 08/02/2022 10:16 AM EDT Sexual Orientation Straight 08/02/2022 10 :16 AM EDT documented as of this encounter Plan of Treatment Not on file documented as of this encounter Visit Diagnoses Not on filedocumented in this encounter Care Teams Aerospace Products Sales Engineer Relationship Specialty Start Date End Date Dori Abarca FNP [address] [place] [id number] PCP - General Family Medicine 03/30/22 11/07/23 documented as of this encounter
== END 2024-10-25 21:05 | disposition home or self-care (01) ==
LOC: HO.ED 21:05
PROVIDERS: Physician Assistant; Emergency Provider Emergency Medicine Emergency Medical Services
DX: J10.1 Influenza due to other identified influenza virus with other respiratory manifestations (principal); R50.9 Fever, unspecified; R11.10 Vomiting, unspecified; R19.7 Diarrhea, unspecified; R07.9 Chest pain, unspecified; M79.10 Myalgia, unspecified site; Z03.818 Encounter for observation for suspected exposure to other biological agents ruled out; E11.9 Type 2 diabetes mellitus without complications; D64.9 Anemia, unspecified; Z79.899 Other long term (current) drug therapy
CPT/HCPCS: 0241U; 36415; 71046; 80053; 83690; 84484; 84702; 85025; 85610; 93005; 99283; 99284

== ENCOUNTER → 2024-10-25 18:31 | Outpatient (BNV) | payer BC, SELFPAY | PROVIDERS: Emergency Provider Emergency Medicine Emergency Medical Services; Visit Provider Internal Medicine Cardiovascular Disease | DX: R52 Pain, unspecified (principal) | CPT/HCPCS: 93010 ==

== ENCOUNTER 2025-07-16 12:37 | Emergency (ER) | payer BC, OTHER, SELFPAY ==
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
[2025-07-16 12:58] VITALS: BP 125/76; PULSE 82; RESP 16; TEMP 36.3; O2SAT 100; BMI 46.5
--- OUTSIDE RECORDS SUMMARY | 2025-07-16 19:40 | XMS_ITS | Clinical Summary ---
Author Organization [facility] Address [address] [place] [phone] Phone Care Team Providers Care Kayak Maker Name Role Phone Pcp, Unknown Primary Care Provider Unavailabl e Allergies No known active allergies Medications Medication-Free Text Iron supplement Acti ve Social History Tobacco Use Types Packs/Day Years Used Date Smoking Tobacco: Never Alcohol Use Standard Drinks/Week Comments Never 0 (1 standard drink = 0.6 oz pur e alcohol) Education Answer Date Recorded Are you interested in more education? Not on jules e 01/28/2023 Are you concerned about learning? Not on file 01/28/2023 No 01/28/2023 No 01/28/2023 Digital Access Answer Date Recorded No 03/01/2023 No 03/01/2023 Reliable internet access at home? Not on file 03/01/2023 Device with a working camera? Not on file Comments Unknown Sex and Gender Information Value Date Recorded Sex Assigned at Female 08/13/2020 9:29 PM EST Legal Sex Female 9:23 PM EST Gender Identity Female 08/13/2020 9:29 PM EST Sexual Orientation Straight 08/13/2020 9: 29 PM EST Last Filed Vital Signs Vital Sign Reading Time Taken Comments Blood Pressure 126/70 08/14/2020 1:40 AM EST Pulse 70 08/14/2020 1:40 AM EST Temperature 36.9 C (98.4 F) 08/13/2020 9:30 PM EST Respiratory Rate 16 08/14/2020 1:40 AM EST Oxygen Saturation 100% 08/14/2020 1:40 AM EST Inhaled Oxygen Concentration - - Weight 111.1 kg (245 lb) 08/13/2020 9:30 PM EST Height 160 cm (5' 3 ) 08/13/2020 9:30 PM EST Body Mass Index 43.4 08/13/2020 9:30 PM EST Plan of Treatment Not on file Medical Devices Not on file Insurance [address] [place] [address] [employer] HE[employer] HE[employer] SAF[employer]Y NET PARTIAL [address] [place] [phone] [employer] PARTIAL [address] [place] [id number] [employer] PARTIAL [address] [place] [id number] [employer]IAL Member Subscriber Plan / Payer (Ef fective 2020-Present) Name:Asim Noamamaliajohn Relation to Subscriber:Self Name:Asim Noamamaliajohn Payer ID:Not on file Group ID:Not on file Type:Medicaid Address: [place] [id number] [place] [address] [employer] SAF[employer]Y NET PARTIAL HE[employer]AF[employer]Y [employer]IAL HE[employer] SAF[employer] NET PARTIAL Care Teams Kayak Maker Relationship Specialty Start Date End Date Pcp, Unknown PCP - General 08/13/20 Additional Source Comments The information contained in this document represents components of the legal health record. It is not the complete legal health record.[facility]
--- OUTSIDE RECORDS SUMMARY | 2025-07-16 19:40 | XMS_ITS | Encounter Summary ---
Author Organization [employer] Address [address] [place] [address] [address] [place] [address] Care Team Providers Care Funeral Home Manager Name Role Phone Dori Abarca Primary Care Provider Encounter Details Date Type Department Care Team (Latest Contact Info) Description 09/20/2019 Abstract [facility] CONVERSIONS Dental, Provider, DDS Social History Tobacco [...] on filedocumented in this encounter Care Teams Funeral Home Manager Relationship Specialty Start Date End Date Dori Abarca FNP [address] [place] [id number] PCP - General Family Medicine 03/30/22 11/07/23 documented as of this encounter
--- OUTSIDE RECORDS SUMMARY | 2025-07-16 19:40 | XMS_ITS | Clinical Summary ---
Author Organization [employer] Address [address] [facility] [address] [place] [address] Care Team Providers Care Funeral Director Name Role Phone Unavailable Primary Care Provider Unavailabl e Social History Tobacco Use Types Packs/Day Years Used Date Smoking Tobacco: Never Assessed Comments Unknown Sex and Gender Information Value Date Recorded Sex Assigned at Female 08/02/2022 10:16 AM EDT Legal Sex Female 10:16 AM EDT Gender Identity Female 08/02/2022 10:16 AM EDT Sexual Orientation Straight 08/02/2022 10 :16 AM EDT Last Filed Vital Signs Vital Sign Reading Time Taken Comments Blood Pressure 124/80 05/14/2021 12:08 AM EDT Pulse 76 05/14/2021 12:08 AM EDT Temperature - - Respiratory Rate - - Oxygen Saturation - - Inhaled Oxygen Concentration - - Weight 112 kg (247 lb 9.5 oz) 05/14/2021 12:08 A M EDT Height 161.5 cm (5' 3.58 ) 05/14/2021 12:08 AM E DT Body Mass Index 43.06 05/14/2021 12:08 AM EDT Plan of Treatment Health Maintenance Due Date Last Done Comments Depression Screening 1996 HIV Screening 1996 SDOH Screening 1996 Disability Screening 1996 Alcohol/Substance Use Screening 2008 Tobacco Screening 2008 Family Planning (PISQ) 2011 Hepatitis C Screening 2014 Pap Smear 10/16/2023 10/16/2020 COVID-19 Vaccine ( season) 2025 05/31/2021, 05/10/2021 Influenza Vaccine (#1) 2025 2, 07/10/2018, 10/12/2017, Additional history exists DTaP/Tdap/Td Vaccines (8 - Td or Tdap) 11/17/2027 11/17/2017, 12/21/2007, 05/18/2000, Additional history exists Zoster Vaccines (1 of 2) 2046 RSV Patients and Patients Aged 60 years or older (1 - 1-dose 75+ series) 2071 HIB Vaccines Aged Out 1996, 07/03, 1996 No longer eligible based on patient's age to complete this topic Hepatitis B Vaccines Completed 1996, 1996, 1996 IPV Vaccines Completed 11/02/2001, 11/03, 1996, Additional history exists HPV Vaccines Completed 08/14/2008, 02/01, 12/21/2007 Meningococcal Vaccine Aged Out 07/04/2015, 008 No longer eligible based on patient's age to complete this topic Hepatitis A Vaccines Completed 04/30/2021, 04/19/20 14 Meningococcal B Vaccine Aged Out No l onger eligible based on patient's age to complete this topic Pneumococcal Vaccine: Pediatrics (0 to 5 Years) and At-Risk Patients (6 to 49) Years Aged Out No longer eligible based on patient's age to complete this topic RSV under 20 months Aged Out No longe r eligible based on patient's age to complete this topic Rotavirus Vaccines Aged Out No longer eligible based on patient's age to complete this topic Procedures Procedure Name Priority Date/Time Associated Diagnosis Comments THINPREP PAP Routine 10/16/2020 9:01 AM EST from Last 3 Months or Most Recently Relevant to Health Maintenance Results * THINPREP PAP (10/16/2020 9:01 AM EST) Clinical Information: None given [facility] COMMENT SEE COMMENT [facility] Comment: EXPLANATORY NOTE: The Pap is a screening test for cervical cancer. It is not a diagnostic test and is subject to false negative and false positive results. It is most reliable when a satisfactory sample, regularly obtained, is submitted with relevant clinical findings and history, and when the Pap result is evaluated along with historic and current clinical information. Chlorinator : SEE COMMENT [facility] Comment: KF, CT(ASCP) CT screening location: [address] [address] Interpretation/R esult: Negative for intraepithelial lesion or malignancy. [facility] LMP: NONE [facility]IVEN [facility] Prev. BX: NONE [facility]IV[facility] Prev. PAP: NONE [facility]IVEN [facility] SOURCE: None given [facility] Statement Of Adequacy: SEE COMMENT [facility] Comment: Satisfactory for evaluation. Endocervical/transformation zone component present. Age and/or menstrual status not provided 10/16/2020 9:01 AM EST us Mami Ocampo CNM LAB PATHOLOGY ORDERABLES Final Result Performing Organization Address City/State/[facility] Co de Phone Number [facility] [address] from Last 3 Months or Most Recently Relevant to Health Maintenance Insurance [id number]
--- OUTSIDE RECORDS SUMMARY | 2025-07-16 19:40 | XMS_ITS | Encounter Summary ---
Author Organization [facility] Address [address] [place] [address] [place] [phone] Phone Care Team Providers Care Vice President Of Customer Service Name Role Phone Pcp, Unknown Primary Care Provider Unavailabl e Encounter Details Date Type Department Care Team (Late st Contact Info) Description 08/13/2020 Procedure Pass [facility], Ct Scan - [address] [id number] Social History Tobacco Use Types Packs/Day Years Used Date Smoking Tobacco: Never Alcohol Use Standard Drinks/Week Comments Never 0 (1 standard drink = 0.6 oz pur e alcohol) Comments Unknown Sex and Gender Information Value Date Recorded Sex Assigned at Female 08/13/2020 9:29 PM EST Legal Sex Female 9:23 PM EST Gender Identity Female 08/13/2020 9:29 PM EST Sexual Orientation Straight 08/13/2020 9: 29 PM EST documented as of this encounter Functional Status documented as of this encounter Plan of Treatment Not on file documented as of this encounter Visit Diagnoses Not on filedocumented in this encounter Care Teams Vice President Of Customer Service Relationship Specialty Start Date End Date Pcp, Unknown PCP - General 08/13/20 documented as of this encounter Additional Source Comments The information contained in this document represents components of the legal health record. It is not the complete legal health record.[facility]
[2025-07-16 19:43] LABS: UPreg QC Valid YES
[2025-07-16 19:54] VITALS: BP 139/76; PULSE 66; RESP 16; O2SAT 100
[2025-07-16 20:35] VITALS: BP 139/76; PULSE 66; RESP 16; TEMP -17.7; TEMP 0; O2SAT 100
== END 2025-07-16 20:36 | disposition home or self-care (01) ==
PROVIDERS: Registered Nurse Emergency; Emergency Provider Emergency Medicine Emergency Medical Services
DX: R51.9 Headache, unspecified (principal); F07.81 Postconcussional syndrome; M79.10 Myalgia, unspecified site
CPT/HCPCS: 70450; 81025; 99283; 99284

== ENCOUNTER → 2025-07-16 13:01 | Outpatient (BNV) | payer BC, SELFPAY | PROVIDERS: Emergency Provider Emergency Medicine Emergency Medical Services; Visit Provider Radiology Diagnostic Radiology | DX: R51.9 Headache, unspecified (principal); R20.0 Anesthesia of skin | CPT/HCPCS: 70450 ==

== ENCOUNTER 2025-08-17 09:40 | Emergency (ER) | payer OTHER, SELFPAY ==
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
[2025-08-17 09:43] VITALS: BP 157/78; PULSE 79; RESP 18; TEMP 36.1; O2SAT 99; BMI 48.6
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
[2025-08-17 14:23] VITALS: BP 157/78; PULSE 79; RESP 18; TEMP 36.1; O2SAT 99
== END 2025-08-17 14:24 | disposition home or self-care (01) ==
PROVIDERS: Emergency Provider Emergency Medicine
DX: M79.601 Pain in right arm (principal); M79.603 Pain in arm, unspecified; M54.12 Radiculopathy, cervical region; R20.0 Anesthesia of skin; R20.2 Paresthesia of skin; M25.521 Pain in right elbow; M79.641 Pain in right hand
CPT/HCPCS: 72125; 73080; 73130; 99284

== ENCOUNTER → 2025-08-17 10:59 | Outpatient (BNV) | payer BC, SELFPAY | PROVIDERS: Emergency Provider Emergency Medicine; Visit Provider Radiology Neuroradiology | DX: R20.2 Paresthesia of skin (principal); M79.642 Pain in left hand; M25.521 Pain in right elbow; Z04.3 Encounter for examination and observation following other accident | CPT/HCPCS: 72125 ==

== ENCOUNTER 2025-09-11 11:42 | Outpatient (AMB) | payer OTHER, SELFPAY ==
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
[2025-09-11 11:51] VITALS: BMI 48.5
== END 2025-09-11 12:04 | disposition home or self-care (01) ==
LOC: HO.HOS 11:43
DX: R20.0 Anesthesia of skin (principal); R20.2 Paresthesia of skin
CPT/HCPCS: 99203